=== PATIENT | female | born 1935 | race Caucasian/White ===

== ENCOUNTER 2017-05-05 00:14 | Emergency (ER) | payer MEDICARE, MEDICAID ==
[~2017-05-05] VITALS: Ht 162.6 cm; Wt 63.5 kg
--- NOTE | 2017-05-05 00:44 | NUR ---
RODERICK MCKEON AT BEDSIDE TO [facility]ODAK DIAZ.
--- NOTE | 2017-05-05 01:12 | NUR ---
PT MEDICATED BY RN PER ER MD ORDER.
[2017-05-05 01:15] LABS: HEMATOCRIT 34 % (33-45); HEMOGLOBIN 11.2 g/dL (11.5-14.8); MEAN CORPUSCULAR HEMOGLOBIN 30 PG (26.0-33.0); MEAN CORPUSCULAR HGB CONC 33 g/dl (31.0-36.0); MEAN CORPUSCULAR VOLUME 92 fL (82-100); PLATELET COUNT (AUTO) 51 /CMM (150-450); RDW COEFFICIENT OF VARIATION 18.6 (11.5-15.0); RED BLOOD CELL COUNT(AUTO) 3.71 MIL/uL (4.0-5.2); WHITE BLOOD COUNT (AUTO) 2.1 K/uL (4.3-11.0)
[2017-05-05 01:25] LABS: CALCIUM, SERUM 9.1 mg/dL (8.5-10.1); CARBON DIOXIDE 26 mmol/L (21-32); CHLORIDE 107 mmol/L (98-107); CREATININE 0.4 mg/dL (0.6-1.3); GLUCOSE 98 mg/dL (74-106); POTASSIUM 3.6 mmol/L (3.5-5.1); SODIUM SERUM 143 mmol/L (136-145); UREA NITROGEN, BLOOD 8 mg/dL (7-18)
[2017-05-05 01:31] LABS: ALANINE AMINOTRANSFERASE 17 U/L (12-78); ALBUMIN 3.5 g/dL (3.4-5.0); ALKALINE PHOSPHATASE 96 U/L (46-116); ASPARTATE AMINOTRANSFERASE 15 U/L (15-37); BILIRUBIN,DIRECT 0.2 mg/dL (0.0-0.2); BILIRUBIN,TOTAL 1.1 mg/dL (0.2-1.0); LIPASE 52 U/L (73-393); TOTAL PROTEIN, SERUM 6.3 g/dL (6.4-8.2)
[2017-05-05 01:33] LABS: APPEARANCE,URINE CLEAR (CLEAR); BILIRUBIN,URINE NEGATIVE (NEGATIVE); BLOOD, URINE TRACE-INTA Ery/uL (NEGATIVE); COLOR,URINE YELLOW (YELLOW); KETONES,URINE NEGATIVE (NEGATIVE); LEUKOCYTE ESTERASE ,URINE 1+ (NEGATIVE); NITRITE, URINE POSITIVE (NEGATIVE); PH,URINE 7.5 (5.0-8.0); PROTEIN,URINE NEGATIVE (NEGATIVE); UGLUCOSE NEGATIVE (NEGATIVE); UROBILINOGEN,URINE 0.2 EU/dL (0.2)
[2017-05-05 01:38] LABS: BACTERIA,URINE Many /HPF (None Seen); SQUAMOUS EPITHELIAL CELL,UR Rare /HPF (None Seen)
--- NOTE | 2017-05-05 01:46 | NUR ---
PT TRANSPORTED TO RADIOLOGY FOR CT.
[2017-05-05 01:58] LABS: EOSINOPHILS % (MANUAL) 1 % (0-4); LYMPHOCYTES % (MANUAL) 68 % (16-48); MONOCYTES % (MANUAL) 1 % (0-11.0); NEUTROPHILS % (MANUAL) 30 (42-76)
--- NOTE | 2017-05-05 02:14 | NUR ---
PT BACK FROM RADIOLOGY. PENDING CT RESULTS.
--- NOTE | 2017-05-05 03:28 | NUR ---
LORETA CALLED TO EXPIDITE CT ABD/PELVIS READING.
--- NOTE | 2017-05-05 04:22 | NUR ---
PT MEDICALLY CLEARED PER ER MD ALVAREZ. TRANSPORT CALLED ETA 75MIN.
--- NOTE | 2017-05-05 05:57 | NUR ---
TRANSPORT AT BEDSIDE REPORT GIVEN TO EMT.
[2017-05-05 05:58] VITALS: BP 134/67
--- NOTE | 2017-05-05 06:04 | NUR ---
IV removed. Catheter intact and site benign. Pressure and 4x4 applied to site. No bleeding noted. Patient discharged to home in stable condition. Written and verbal after care instructions given. [facility] understanding of instruction[facility]
== END 2017-05-05 06:05 | disposition home or self-care (01) ==
LOC: ER 00:18
DX: S32.019A Unspecified fracture of first lumbar vertebra, initial encounter for closed fracture (principal); S32.029A Unspecified fracture of second lumbar vertebra, initial encounter for closed fracture; S32.049A Unspecified fracture of fourth lumbar vertebra, initial encounter for closed fracture; S32.059A Unspecified fracture of fifth lumbar vertebra, initial encounter for closed fracture; R33.9 Retention of urine, unspecified; N39.0 Urinary tract infection, site not specified; D69.6 Thrombocytopenia, unspecified; D72.819 Decreased white blood cell count, unspecified; G89.29 Other chronic pain; I10 Essential (primary) hypertension; I25.10 Atherosclerotic heart disease of native coronary artery without angina pectoris; Z90.49 Acquired absence of other specified parts of digestive tract; Z90.710 Acquired absence of both cervix and uterus; Z90.89 Acquired absence of other organs; X58.XXXA Exposure to other specified factors, initial encounter; Y93.89 Activity, other specified; Y92.89 Other specified places as the place of occurrence of the external cause; Y99.9 Unspecified external cause status
CPT/HCPCS: 36415; 71010-TC; 80048-TC; 80076-TC; 81000-TC; 83690-TC; 85025-TC; 87086-TC; 87186-TC; A4606; J0696; J1170; J7060; Z7610